=== PATIENT | female | born 1985 | race Caucasian/White ===

== ENCOUNTER 2016-05-03 16:39 | Outpatient (CLI) | payer BC | END 2016-05-03 19:00 | disposition home or self-care (01) | LOC: NST SRH 16:39 → OB SRH 16:45 → NST SRH 19:00 | PROC: 4A0HXCZ Measurement of Products of Conception, Cardiac Rate, External Approach (ICD-10-PCS; principal; 2016-05-03) | DX: O47.03 False labor before 37 completed weeks of gestation, third trimester (principal); O36.8930 Maternal care for other specified fetal problems, third trimester, not applicable or unspecified; Z3A.36 36 weeks gestation of pregnancy ==

== ENCOUNTER 2016-05-16 11:53 | Outpatient (CLI) | payer BC | END 2016-05-16 23:00 | LOC: LAB SRH 11:53 | DX: O35.9XX9 Maternal care for (suspected) fetal abnormality and damage, unspecified, other fetus (principal) | CPT/HCPCS: 90074; 91286 ==